=== PATIENT | female | born 1975 | race Caucasian/White ===

== ENCOUNTER 2017-01-06 14:07 | Observation (INO) | payer OTHER ==
[~2017-01-06] VITALS: Ht 175.3 cm; Wt 80.0 kg
[~2017-01-06 14:07] MED LIST: MELA5TAB8 PO; Z.0.BCPILL PO
[2017-01-06 14:12] VITALS: BP 139/88; PULSE 90; RESP 18; TEMP 98; O2SAT 99
--- NOTE | 2017-01-06 14:13 | PD ---
Physical Exam Date Seen by Provider: Jan 06, 2017 Time Seen by Provider: 14:11 Narrative 41 YOWF C/O L ARM TINGLING AND SQUEEZING. POS L FACIAL/EYE PAIN -12/01 VS REVIEWED AWAITING BED PLACEMENT MDM Supervised Visit with FÁTIMA: Jose David Powell Jan 06, 2017 14:13
[2017-01-06] MEDS ORDERED: TRI-TAB (17:28)
--- NOTE | 2017-01-06 17:46 | PD ---
HPI . left arm numbness, tingling, since earlier today Chief Complaint: Neuro Symptoms/ Deficits Time Seen by Provider: 17:45 Travel History International Travel<30 days: Yes Contact w/Intl Traveler<30days: [place] Traveled to: [place], [place], [place], [place] Traveled to known affect area: No History of Present Illness HPI 41-year-old female with no significant past medical history here with complaints of left arm numbness and tingling that started earlier today. Patient tells me that last week she went on a cruise to the [facility] and she thinks that her arm may have been swollen. She says that it was extremely hot and she had some numbness then, but she didn't think much of it. She blames it on the heat. She is now complaining of being at work and having a sensation of feeling flushed and left arm numbness. She was concerned about a stroke and decided to come to the ED for evaluation. She had to call a colleague to relieve her. She reports that she had some eye pain, however that is completely resolved. She does still have some numbness and pain in her left upper extremity. She denies any chest pain, nausea, vomiting, diaphoresis, shortness of breath, abdominal pain, weakness or fatigue. She's not had any recent illness, fever or chills. She did not have any slurred speech. [facility] Past Medical History Depression: Yes Diminished Hearing: No Influenza Vaccination: No ?: Not LMP: 12/2016 Past Surgical History Eye Surgery: Yes (lasik) Social History Alcohol Use: Yes (2-3 x weekly) Tobacco Use: No Substance Use: No Allergies-Medications (Allergen,Severity, Reaction): Coded Allergies: No Known Allergies (Verified , 01/06/17) Reported Meds & Prescriptions Reported Meds & Active Scripts Active Reported Tri-Sprintec (Norgestimate-Ethinyl Estradiol) 0.18/0.215/0.25 Mg-35 Mcg Tab Review of Systems General / Constitutional: No: Fever Eyes: No: Visual changes HENT: No: Headaches Cardiovascular: No: Chest Pain or Discomfort Respiratory: No: Shortness of Breath Gastrointestinal: No: Abdominal Pain Genitourinary: No: Urgency, Frequency, Dysuria Musculoskeletal: No: Pain Skin: No Rash Neurologic: Positive: Paresthesia, No: Weakness Psychiatric: No: Depression Endocrine: No: Polydipsia Hematologic/Lymphatic: No: Easy Bruising Physical Exam Narrative GENERAL: AAO x 3, no acute distress, Well-nourished, well-developed patient. SKIN: Warm and dry. No visible rashes or bruising. HEAD: Normocephalic and atraumatic. EYES: No scleral icterus. No injection or drainage. EOM intact, PERRLA ENT: No nasal drainage noted. Mucous membranes pink. Airway patent. TM normal bilaterally except mild cerumen buildup, no oropharynx NECK: Supple, trachea midline. No JVD. no lymphadenopathy CARDIOVASCULAR: Regular rate and rhythm without murmurs, gallops, or rubs. RESPIRATORY: Breath sounds equal bilaterally. No accessory muscle use. No rhonchi or rales. no wheezing. GASTROINTESTINAL: Abdomen soft, non-tender, nondistended. no rebound or guarding EXTREMITIES: No cyanosis or edema. full ROM B/L upper and lower extremities BACK: Nontender without obvious deformity. No CVA tenderness. NEURO: CN II-12 intact, patient transport orderly strength normal b/l, UE and LE 5/5, no focal deficits, no pronator drift, negative Romberg PSYCH: AAO x 3, slightly bizarre behavior, but responds appropriately Data Data Last Documented VS Vital Signs Date Time Temp Pulse Resp B/P Pulse Ox O2 Delivery O2 Flow Rate FiO2 01/06/17 19:06 81 12 137/91 100 Room Air 01/06/17 14:12 98.0 Orders Complete Blood Count With Diff (01/06/17 17:51) Basic Metabolic Panel (Bmp) (01/06/17 17:51) Ct Brain W/O Iv Contrast(Rout) (01/06/17 17:51) Ecg Monitoring (01/06/17 17:51) Iv Access Insert/Monitor (01/06/17 17:51) Oximetry (01/06/17 17:51) Sodium Chloride 0.9% Flush (Ns Flush) (01/06/17 18:00) Ed Urine Pregnancytest Poc (01/06/17 17:51) Electrocardiogram (01/06/17 ) Electrocardiogram (01/06/17 18:58) Ckmb (Isoenzyme) Profile (01/06/17 18:58) Magnesium (Mg) (01/06/17 18:58) Prothrombin Time / Inr (Pt) (01/06/17 18:58) Act Partial Throm Time (Ptt) (01/06/17 18:58) Troponin I (01/06/17 18:58) Chest, Single Ap (01/06/17 18:58) Bilateral Bp Monitoring (01/06/17 18:58) Oxygen Administration (01/06/17 18:58) Mri Brain W/O Contrast (01/06/17 18:58) Mra Brain W/O Contrast (Cow) (01/06/17 18:58) Mra Carotids W Contrast (01/06/17 18:58) D-Dimer (01/06/17 18:58) Lorazepam (Ativan) (01/06/17 20:15) Admit Order (Ed Use Only) (01/06/17 20:31) Labs Laboratory Tests Test 01/06/17 18:15 White Blood Count 7.8 TH/MM3 Red Blood Count 4.45 MIL/MM3 Hemoglobin 13.7 GM/DL Hematocrit 40.3 % Mean Corpuscular Volume 90.7 FL Mean Corpuscular Hemoglobin 30.9 PG Mean Corpuscular Hemoglobin 34.0 % Concent Red Cell Distribution Width 14.5 % Platelet Count 235 TH/MM3 Mean Platelet Volume 7.6 FL Neutrophils (%) (Auto) 51.4 % Lymphocytes (%) (Auto) 36.7 % Monocytes (%) (Auto) 8.4 % Eosinophils (%) (Auto) 2.9 % Basophils (%) (Auto) 0.6 % Neutrophils # (Auto) 4.0 TH/MM3 Lymphocytes # (Auto) 2.9 TH/MM3 Monocytes # (Auto) 0.7 TH/MM3 Eosinophils # (Auto) 0.2 TH/MM3 Basophils # (Auto) 0.0 TH/MM3 CBC Comment DIFF FINAL Differential Comment Sodium Level 137 MEQ/L Potassium Level 3.6 MEQ/L Chloride Level 103 MEQ/L Carbon Dioxide Level 28.7 MEQ/L Anion Gap 5 MEQ/L Blood Urea Nitrogen 17 MG/DL Creatinine 0.82 MG/DL Estimat Glomerular Filtration 76 ML/MIN Rate Random Glucose 89 MG/DL Calcium Level 8.7 MG/DL MDM Medical Decision Making Medical Screen Exam Complete: Yes Emergency Medical Condition: Yes Medical Record Reviewed: Yes Differential Diagnosis exhaustion, TIA, less likely CVA, Narrative Course 41 yr old female here with left arm numbness and tingling that started while at work. Exam was done and unremarkable. CT brain and labs ordered. Laboratory Tests Test 01/06/17 18:15 White Blood Count 7.8 TH/MM3 Red Blood Count 4.45 MIL/MM3 Hemoglobin 13.7 GM/DL Hematocrit 40.3 % Mean Corpuscular Volume 90.7 FL Mean Corpuscular Hemoglobin 30.9 PG Mean Corpuscular Hemoglobin 34.0 % Concent Red Cell Distribution Width 14.5 % Platelet Count 235 TH/MM3 Mean Platelet Volume 7.6 FL Neutrophils (%) (Auto) 51.4 % Lymphocytes (%) (Auto) 36.7 % Monocytes (%) (Auto) 8.4 % Eosinophils (%) (Auto) 2.9 % Basophils (%) (Auto) 0.6 % Neutrophils # (Auto) 4.0 TH/MM3 Lymphocytes # (Auto) 2.9 TH/MM3 Monocytes # (Auto) 0.7 TH/MM3 Eosinophils # (Auto) 0.2 TH/MM3 Basophils # (Auto) 0.0 TH/MM3 CBC Comment DIFF FINAL Differential Comment Sodium Level 137 MEQ/L Potassium Level 3.6 MEQ/L Chloride Level 103 MEQ/L Carbon Dioxide Level 28.7 MEQ/L Anion Gap 5 MEQ/L Blood Urea Nitrogen 17 MG/DL Creatinine 0.82 MG/DL Estimat Glomerular Filtration 76 ML/MIN Rate Random Glucose 89 MG/DL Calcium Level 8.7 MG/DL CT brain unremarkable. Dr. Herron has also examined the patient. We discussed the case. He recommends MRI brain, MRA [place] of amos and carotids along with cardiac enzymes and d dimer. Patient apparently had some additional information about walking and have some arm swelling along with syncopal episode. Dr. Herron discussed case with the admitting physician, who will resume care of this patient. Diagnosis Primary Impression: Left arm weakness Additional Impression: Near syncope Admitting Information Admitting Physician Requests: Admit Patient Instructions: General Instructions Additional Instructions: Follow-up with primary care provider. Return to the emergency department for any worsening of your condition. Med/Other Pt SpecificInfo: No Change to Meds Disposition: 01 DISCHARGE HOME Condition: Stable Zhane Kay Jan 06, 2017 17:45
[2017-01-06] MEDS ORDERED: SODIUM CHLORIDE 0.9% FLUSH 10 ML FLUSH IVF PRN (18:00)
[2017-01-06 18:29] LABS: BASOPHIL % 0.6 % (0.0-2.0); EOSINOPHIL # 0.2 TH/MM3 (0-0.4); EOSINOPHIL % 2.9 % (0.0-4.0); HEMATOCRIT 40.3 % (35.0-46.0); HEMO FLAGS DIFF FINAL; LYMPH % 36.7 % (9.0-44.0); LYMPHOCYTE # 2.9 TH/MM3 (1.0-4.8); MEAN CELL VOLUME 90.7 FL (80.0-100.0); MEAN CORPUSCULAR HEMOGLOBIN 30.9 PG (27.0-34.0); MONO % 8.4 % (0.0-8.0); NEUT % 51.4 % (16.0-70.0); PLATELET COUNT 235 TH/MM3 (150-450); RED BLOOD COUNT 4.45 MIL/MM3 (4.00-5.30); RED CELL DISTRIBUTION WIDTH 14.5 % (11.6-17.2); WHITE BLOOD COUNT 7.8 TH/MM3 (4.0-11.0)
[2017-01-06 18:43] LABS: BICARBONATE 28.7 MEQ/L (21.0-32.0); POTASSIUM 3.6 MEQ/L (3.5-5.1)
--- NOTE | 2017-01-06 18:45 | RADRPT ---
EXAM DATE/TIME: 01/06/2017 18:20 [facility] COMPARISON: No previous studies available for comparison. INDICATIONS : Near syncope,left eye pain,left arm tingling. RADIATION DOSE: 50.25 CTDIvol (mGy) MEDICAL HISTORY : None SURGICAL HISTORY : None. ENCOUNTER: Initial ACUITY: 1 day PAIN SCALE: 6/10 LOCATION: Left cranial TECHNIQUE: Multiple contiguous axial images were obtained of the head. Using automated exposure control and adj ustment of the mA and/or kV according to patient size, radiation dose was kept as low as reasonably a chievable to obtain optimal diagnostic quality images. DICOM format image data is available electro nically for review and comparison. FINDINGS: CEREBRUM: The ventricles are normal for age. No evidence of midline shift, mass lesion, hemorrhage or acute in farction. No extra-axial fluid collections are seen. POSTERIOR FOSSA: The cerebellum and brainstem are intact. The 4th ventricle is midline. The cerebellopontine angle i s unremarkable. EXTRACRANIAL: The visualized portion of the orbits is intact. SKULL: The calvaria is intact. No evidence of skull fracture. CONCLUSION: Negative noncontrast head CT. Daniel Rose MD on January 06, 2017 at 18:43 Board Certified Radiologist. This report was verified electronically.
[2017-01-06 19:06] VITALS: BP 137/91; PULSE 81; RESP 12; O2SAT 100
--- NOTE | 2017-01-06 19:34 | RADRPT ---
EXAM DATE/TIME: 01/06/2017 19:00 [facility] COMPARISON: No previous studies available for comparison. INDICATIONS : Chest pain. MEDICAL HISTORY : None. SURGICAL HISTORY : None. ENCOUNTER: Initial ACUITY: 1 day PAIN SCORE: 4/10 LOCATION: Left chest FINDINGS: A single view of the chest demonstrates the lungs to be symmetrically aerated without evidence of mas s, infiltrate or effusion. The cardiomediastinal contours are unremarkable. Osseous structures are intact. CONCLUSION: No evidence of acute cardiopulmonary disease. Daniel Rose MD on January 06, 2017 at 19:32 Board Certified Radiologist. This report was verified electronically.
[2017-01-06] MEDS ORDERED: LORazepam 0.5 MG TAB PO ONE (20:15)
[2017-01-06 20:59] LABS: APTT (PATIENT) 25.9 SEC (24.3-30.1); PROTHROMBIN TIME - PATIENT 11.1 SEC (9.8-11.6)
[2017-01-06 21:00] LABS: MAGNESIUM 2.1 MG/DL (1.5-2.5)
[2017-01-06 21:02] LABS: CREATINE KINASE 140 U/L (26-192)
[2017-01-06 21:15] LABS: CKMB 1.4 NG/ML (0.5-3.6)
[2017-01-06] MEDS ORDERED: SODIUM CHLORIDE 0.9% FLUSH 10 ML FLUSH IV FLUSH PRN (21:15)
--- NOTE | 2017-01-06 21:34 | RADRPT ---
EXAM DATE/TIME: 01/06/2017 20:43 [facility] COMPARISON: No previous studies available for comparison. INDICATIONS : Cephalgia. MEDICAL HISTORY : None. SURGICAL HISTORY : Lasik, eye. ENCOUNTER: Subsequent ACUITY: 1 day PAIN SCORE: 3/10 LOCATION: cranial Please note a normal MRA of the brain does not entirely exclude the possibility of a small aneurysm, nor the possibility of distal intracranial vessel disease. TECHNIQUE: 3D time of flight MRA was performed. Source images, multiplanar STS MIP, and 3D volume MIP reconstru ctions were reviewed. FINDINGS: There is excellent visualization of the major intracranial arteries out to the second-order branch ve ssels. There is no evidence for aneurysm, vessel truncation or stenosis, and no evidence for vascula r malformation. CONCLUSION: Normal intracranial arteries. Daniel Rose MD on January 06, 2017 at 21:32 Board Certified Radiologist. This report was verified electronically.
--- NOTE | 2017-01-06 21:39 | HHI.HP ---
[facility] Service Family Medicine Primary Care Physician Alex Rivera MD Admission Diagnosis L Face/LUE Parasthesias Diagnoses: International Travel<30 Days: Yes Contact w/Intl Traveler<30days: [place] Traveled to: [place], [facility], [facility], [facility] Known Affected Area: No History of Present Illness Patient presented to the emergency department with a transient episode of left arm paresthesia. Patient reports that she was on a cruise since December 22, in which she went to [place], [facility], [facility], [place]. All the while, it was hot in the . She first saw watch tan in her arm like she was swelling. During a walking tour of [facility], she experienced cold chills. Then, last week, her left eye started to bother her. She describes feeling stabbing pain. She woke up last Thursday and didn't feel well with nausea and vomiting. Around noon, she felt better. She then was walking around [place], felt hot and cold, thought she might be menopausal, but then had her period. She went to work today, and her left eye was bothering her, then her left ear, then left arm with pins and needles like asleep. She also felt presyncopal/ lightheaded, sweaty at work. She felt a squeezing sensation around her left elbow upon arrival to ED. She denies any red or tender arms or legs. She reports that she did have a long flight, but got up as frequently as possible to stretch her legs. Her face feels like there is something touching around her left ear. Now, she denies any numbness, weakness, facial droop, slurred speech. (Doron Joshi MD R2) Review of Systems Constitutional: COMPLAINS OF: Fatigue, Chills, DENIES: Fever Endocrine: DENIES: Polydipsia, Polyuria, Polyphagia Eyes: COMPLAINS OF: Blurred vision (left more blurry after lasik), DENIES: Diplopia, Vision loss, Double Vision Ears, nose, mouth, throat: COMPLAINS OF: Running Nose (always ), DENIES: Tinnitus, Hearing loss, Throat pain Respiratory: DENIES: Shortness of breath Cardiovascular: COMPLAINS OF: Dyspnea on Exertion, DENIES: Chest pain, Lower Extremity Edema Gastrointestinal: DENIES: Abdominal pain, Black stools, Bloody stools, Constipation, Diarrhea, Nausea, Vomiting Genitourinary: DENIES: Urinary frequency, Urinary incontinence, Urgency, Hematuria, Dysuria Musculoskeletal: COMPLAINS OF: Joint pain (left knee), Neck pain (as she was sitting), DENIES: Joint Swelling, Back pain Integumentary: DENIES: Rash, Nail changes Neurologic: COMPLAINS OF: Paresthesias, DENIES: Abnormal gait, Headache, Localized weakness (Doron Joshi MD R2) Past Family Social History Past Medical History depression, dx in 2007 cycle every 26-28 days, heavy on first few days, lasts 4-[address] 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 Past Surgical History LASIK Reported Medications Reported Meds & Active Scripts Active Reported Tri-Sprintec (Norgestimate-Ethinyl Estradiol) 0.18/0.215/0.25 Mg-35 Mcg Tab ( Doron Joshi MD R2) Allergies: Coded Allergies: No Known Allergies (Verified , 01/06/17) Family History dad committed suicide mom is healthy borther has bad allergies Social History work at [employer] etoh: 1-2 drinks 3-4 week tobacco: none illicits: denies (Doron Joshi MD R2) Physical Exam Vital Signs Vital Signs Date Time Temp Pulse Resp B/P Pulse Ox O2 Delivery O2 Flow Rate FiO2 01/06/17 19:06 81 12 137/91 100 Room Air 01/06/17 14:12 98.0 90 18 139/88 99 Room Air Physical Exam GENERAL: This is a well-nourished, well-developed patient, in no apparent distress. SKIN: No rashes, ecchymoses or lesions. Cool and dry. HEAD: Atraumatic. Normocephalic. EYES: Pupils equal round and reactive. Extraocular motions intact. No scleral icterus. No injection or drainage. ENT: Nose without bleeding, purulent drainage or septal hematoma. Moist mucous membranes. Throat without erythema, tonsillar hypertrophy or exudate. Uvula midline. Airway patent. NECK: Trachea midline. No JVD or lymphadenopathy. Supple, nontender, no meningeal signs. CARDIOVASCULAR: Regular rate and rhythm without murmurs, gallops, or rubs. RESPIRATORY: Clear to auscultation. Breath sounds equal bilaterally. No wheezes , rales, or rhonchi. GASTROINTESTINAL: Abdomen soft, non-tender, nondistended. No hepato-splenomegaly , or palpable masses. No guarding. MUSCULOSKELETAL: Extremities without clubbing, cyanosis, or edema. No joint tenderness, effusion, or edema noted. No calf tenderness. Negative Homans sign bilaterally. NEUROLOGICAL: Awake and alert. Cranial nerves II through XII intact. Except for some mildly decreased sensation distal to her left elbow, Motor and sensory within normal limits. Five out of 5 muscle strength in all muscle groups. Normal speech. Laboratory Laboratory Tests Test 01/06/17 01/06/17 18:15 20:25 White Blood Count 7.8 Red Blood Count 4.45 Hemoglobin 13.7 Hematocrit 40.3 Mean Corpuscular Volume 90.7 Mean Corpuscular Hemoglobin 30.9 Mean Corpuscular Hemoglobin 34.0 Concent Red Cell Distribution Width 14.5 Platelet Count 235 Mean Platelet Volume 7.6 Neutrophils (%) (Auto) 51.4 Lymphocytes (%) (Auto) 36.7 Monocytes (%) (Auto) 8.4 Eosinophils (%) (Auto) 2.9 Basophils (%) (Auto) 0.6 Neutrophils # (Auto) 4.0 Lymphocytes # (Auto) 2.9 Monocytes # (Auto) 0.7 Eosinophils # (Auto) 0.2 Basophils # (Auto) 0.0 CBC Comment DIFF FINAL Differential Comment Sodium Level 137 Potassium Level 3.6 Chloride Level 103 Carbon Dioxide Level 28.7 Anion Gap 5 Blood Urea Nitrogen 17 Creatinine 0.82 Estimat Glomerular Filtration 76 Rate Random Glucose 89 Calcium Level 8.7 Prothrombin Time 11.1 Prothromb Time International 1.0 Ratio Activated Partial 25.9 Thromboplast Time D-Dimer Quantitative (PE/DVT) 0.45 Magnesium Level 2.1 Total Creatine Kinase 140 Creatine Kinase MB 1.4 Troponin I LESS THAN 0.02 (Doron Joshi MD R2) Result Diagram: 01/06/17181401/06/171814 Imaging Last Impressions Neck Magnetic Resonance Angiography 01/06/171857 Signed Impressions: Service Date/Time: Friday, January 06, 2017 20:43 - CONCLUSION: Normal carotid MRA. Daniel Rose MD Head Magnetic Resonance Angiography 01/06/171857 Signed Impressions: Service Date/Time: Friday, January 06, 2017 20:43 - CONCLUSION: Normal intracranial arteries. Daniel Rose MD Chest X-Ray 01/06/171857 Signed Impressions: Service Date/Time: Friday, January 06, 2017 19:00 - CONCLUSION: No evidence of acute cardiopulmonary disease. Daniel Rose MD Brain MRI 01/06/171857 Signed Impressions: Service Date/Time: Friday, January 06, 2017 20:43 - CONCLUSION: Normal noncontrast MRI of the brain. Daniel Rose MD Head CT 01/06/171750 Signed Impressions: Service Date/Time: Friday, January 06, 2017 18:20 - CONCLUSION: Negative noncontrast head CT. Daniel Rose MD (Doron Joshi MD R2) Assessment and Plan Assessment and Plan Patient is a 41-year-old woman with a history of depression who presents with transient left arm paresthesia and a strange sensation around her left ear. Differential diagnosis includes TIA, CVA, atypical presentation of CAD/ACS. Code Status Full code (Doron Joshi MD R2) Attending Attestation Patient seen and examined Case reviewed and discussed Please refer to resident H&P for further details regarding HPI, ROS, PMH, SurgHx , Fh and SocHx In summary, patient is a 41yoF who presented from work on day of admission with acute L arm weakness and L sided headache She is seen in her hospital bed, reporting some improvement in her symptoms but states she still is not back to normal Patient also notes while at work she had some confusion with her normal daily work responsibilities which she has done for the last 18 years. No speech difficulties, word finding trouble GENERAL: well-appearing, female, NAD SKIN: Warm and dry. NO rashes HEAD: Normocephalic. AT EYES: No scleral icterus. No injection or drainage. ENT: OP clear. MMM NECK: Supple, trachea midline. No JVD or lymphadenopathy. CARDIOVASCULAR: Regular rate and rhythm without audible murmurs, gallops, or rubs. RESPIRATORY: Breath sounds equal and clear bilaterally. No accessory muscle use. GASTROINTESTINAL: Abdomen soft, non-tender, nondistended. NO rebound MUSCULOSKELETAL: No cyanosis, or edema. No calf tenderness BACK: Nontender without obvious deformity. No CVA tenderness. NEURO: Normal speech. 5/5 x 4. CN grossly intact. Subjectively diminished sensation over dorsal hand. A/P: 41yoF admitted with: Headache with LUE parasthesias Depression Transient confusion Hypotension Stroke protocol- NRI/MRA Neurology consulted Resume home meds Lovenox for DVT proph Patient seen and examined. Case reviewed and discussed Agree with plan of care as discussed with me and documented in the resident note. (June Valencia MD) Problem List: (1) Arm paresthesia, left Status: Acute Plan: Placed in observation for ACS rule out and CVA workup ACS rule out with every 6 hours troponin, EKG, CK CVA workup as below: Echocardiogram, brain MRI, head MRA, neck MRA, head CT, carotid ultrasound Consult neurology, rehabilitation medicine, stroke navigator, OT Gentle fluid hydration Aspirin by mouth daily Atorvastatin by mouth daily Plavix by mouth daily Permissive hypertension with Vasotec when necessary for blood pressure over 220 /120 DVT prophylaxis with Lovenox Load glucose control with low-dose sliding scale insulin Bedrest 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
--- NOTE | 2017-01-06 21:45 | RADRPT ---
EXAM DATE/TIME: 01/06/2017 20:43 [facility] COMPARISON: MRA BRAIN W/O CONTRAST, January 06, 2017, 20:43. CT BRAIN W/O CONTRAST, January 06, 2017, 18:20. INDICATIONS : Cephalgia. MEDICAL HISTORY : None. SURGICAL HISTORY : Lasik, eye. ENCOUNTER: Subsequent ACUITY: 1 day PAIN SCORE: 3/10 LOCATION: cranial TECHNIQUE: Multiplanar, multisequence MRI of the brain was performed without contrast. FINDINGS: CEREBRUM: The ventricles are normal for age. No evidence of midline shift, mass lesion, hemorrhage or acute in farction. No extraaxial fluid collections are seen. The pituitary gland and suprasellar cistern are normal in configuration. WHITE MATTER: No significant signal abnormalities are seen in the white matter. POSTERIOR FOSSA: The cerebellum and brainstem are intact. The 4th ventricle is midline. The cerebellopontine angle is unremarkable. The cerebellar tonsils are normal in position. DIFFUSION IMAGING: No focal areas of restricted diffusion are seen. No evidence of acute infarction. EXTRACRANIAL: The visualized portions of the orbits and paranasal sinuses are unremarkable. CONCLUSION: Normal noncontrast MRI of the brain. Daniel Rose MD on January 06, 2017 at 21:43 Board Certified Radiologist. This report was verified electronically.
[2017-01-06] MEDS: SODIUM CHLOR 0.9% 1000 ML INJ 1,000 ML IV SCH (21:49)
--- NOTE | 2017-01-06 21:52 | RADRPT ---
EXAM DATE/TIME: 01/06/2017 20:43 [facility] COMPARISON: MRA BRAIN W/O CONTRAST, January 06, 2017, 20:43. MRI BRAIN W/O CONTRAST, January 06, 2017, 20:43. INDICATIONS : Stroke. CONTRAST: 20 cc Omniscan (gadodiamide) IV MEDICAL HISTORY : None. SURGICAL HISTORY : Lasik, eye. ENCOUNTER: Subsequent ACUITY: 1 day PAIN SCORE: 3/10 LOCATION: cranial Percent stenosis is calculated using the diameter of the stenotic region over the diameter of the nor mal distal internal carotid artery. TECHNIQUE: Bolus infused MRA of the extracranial circulation was performed using a neurovascular coil. Post pro cessing was performed including rotating subvolume maximum intensity projections of each carotid carlos ry, rotating full volume maximum intensity projections of both carotid arteries, sagittal and coronal sliding thin slab reformations of each carotid artery, and left oblique sliding thin slab reformatio n through the aortic arch to include the origin of the arch branch vessels. FINDINGS: AORTIC ARCH: There is a three vessel origin of the great vessels from the aorta. No evidence of ostial narrowing. RIGHT CAROTID: The common carotid artery is intact. The carotid bulb has a normal configuration without ulceration or narrowing. The internal carotid artery lumen is smooth without stenosis. The external carotid ar sri is intact. LEFT CAROTID: The common carotid artery is intact. The carotid bulb has a normal configuration without ulceration or narrowing. The internal carotid artery lumen is smooth without stenosis. The external carotid ar sri is intact.VERTEBRALS: Left vertebral artery is dominant. No stenotic lesions are seen. CONCLUSION: Normal carotid MRA. Daniel Rose MD on January 06, 2017 at 21:50 Board Certified Radiologist. This report was verified electronically.
[2017-01-06] MEDS ORDERED: ENALAPRILAT 1.25 MG/ML VIAL IV PRN (22:00)
[2017-01-06] MEDS ORDERED: DEXTROSE 50% IN WATER 50 ML VIAL(D50) IV PUSH PRN (22:00)
[2017-01-06] MEDS ORDERED: SODIUM CHLORIDE 0.9% FLUSH 5 ML FLUSH IV FLUSH PRN (22:00)
[2017-01-06] MEDS ORDERED: GLUCAGON 1 MG/ML VIAL OTHER PRN (22:00)
[2017-01-06] MEDS ORDERED: GADODIAMIDE PF 287 MG/ML 20 ML VIAL (for RAD MRI) IV ONE (22:05)
[2017-01-06 23:01] VITALS: BP 119/70; PULSE 83; RESP 20; TEMP 97.8; O2SAT 99
[2017-01-07] VITALS (12 sets, daily range): BP systolic 70–126; BP diastolic 37–83; PULSE 42–83; RESP 16–18; TEMP 98.1–98.3; O2SAT 97–100
--- NOTE | 2017-01-07 00:28 | EKG ---
Date Performed: 01/06/2017 Time Performed: 18:33:28 PTAGE: 41 years EKG: Sinus rhythm NORMAL ECG NO PREVIOUS TRACING DOCTOR: Dino Herron Interpretating Date/Time 01/07/2017 00:27:37
[2017-01-07 03:52] LABS: ALT (GPT) 22 U/L (10-53); ANION GAP 6 MEQ/L (5-15); AST (GOT) 15 U/L (15-37); BLOOD UREA NITROGEN 20 MG/DL (7-18); CHLORIDE 107 MEQ/L (98-107); GLOMERULAR FILTRATION RATE 74 ML/MIN (>89); POTASSIUM 3.5 MEQ/L (3.5-5.1); SODIUM (NA) 142 MEQ/L (136-145)
[2017-01-07 03:56] LABS: ALKALINE PHOSPHATASE 57 U/L (45-117); CREATINE KINASE 134 U/L (26-192); TOTAL BILIRUBIN ADULT 0.2 MG/DL (0.2-1.0)
[2017-01-07] MEDS: SODIUM CHLOR 0.9% 1000 ML INJ 1,000 ML IV SCH (05:48)
[2017-01-07] MEDS: INSULIN ASPART SUPPLEMENTAL SCALE SQ SCH ×4 (05:54→21:00)
--- NOTE | 2017-01-07 08:45 | MB ---
cc: TRISTAN WADSWORTH M.D. DATE OF CONSULTATION 01/07/2017 REASON FOR CONSULTATION Left arm paresthesias. HISTORY OF PRESENT ILLNESS Ms. James is a 45-year-old female who states about a week ago she was on a cruise and suddenly noted some swelling of the left arm. It did not look swollen, just felt swollen. She had to take a watch off, it resolved after about a day. Yesterday while at work, she suddenly developed numbness and tingling down the left arm mainly on the dorsal aspect and also a numbness in the left ear and a pain in the left eye lasting about an hour, with resolution and no other neurologic symptoms. PAST MEDICAL HISTORY 1. History of depression. 2. Lasik eye surgery MEDICATIONS She takes control pills. ALLERGIES None known. SOCIAL HISTORY Denies tobacco use. She drinks alcohol occasionally. Denies any drug abuse. NEUROLOGIC EXAMINATION VITAL SIGNS: Blood pressure 104/71, pulse 70, respirations 18, temperature 98 degrees. Higher cortical functions are normal. Cranial nerves II-XII are normal in detail. Motor examination reveals 5/5 strength of all groups in both upper and lower extremities. There is no drift. Fine motor skills within normal limits. Reflexes are symmetric. Sensory exam, slight diminished sensation in the left C5 dermatome. Reflexes symmetric. MRI of the brain normal. MRA brain normal. MRA of the neck is normal with no evidence of any carotid stenosis. CT brain is within normal limits. Chest x-ray Is normal. LABORATORY DATA White count 7800, hemoglobin of 13.7, hematocrit 40.3%, platelet count 235,000, PT 11.1, INR 1, APTT 25.9. Sodium is 142, potassium 3.5, chloride 107, CO2 29, the BUN is 20, creatinine 0.84, GFR is 74, glucose is 87, calcium 8.4. AST 15, ALT 22, CPK 140. EKG normal sinus rhythm. IMPRESSION Symptoms are suggestive of cervical radiculopathy with occipital neuralgia, doubt TIA. RECOMMENDATIONS I would like to get an MRI of the cervical spine for further evaluation to rule out any signs of some foraminal stenosis. MD TEDDY Haro/ANGELICA /8:29 AM /8:34 AM
[2017-01-07] MEDS: SODIUM CHLORIDE 0.9% FLUSH 5 ML FLUSH IV FLUSH SCH ×2 (09:00→21:00)
[2017-01-07] MEDS ORDERED: SODIUM CHLORIDE 0.9% FLUSH 10 ML FLUSH IV FLUSH SCH (09:00)
--- NOTE | 2017-01-07 09:56 | RADRPT ---
EXAM DATE/TIME: 01/07/2017 09:03 [place] COMPARISON: MRI BRAIN W/O CONTRAST, January 06, 2017, 20:43. INDICATIONS : Cervical stenosis. Left upper extremity numbness. MEDICAL HISTORY : None. SURGICAL HISTORY : Lasik. ENCOUNTER: Subsequent ACUITY: 2 day PAIN SCORE: 0/10 LOCATION: neck TECHNIQUE: Multiplanar, multisequence MRI examination of the cervical spine was performed. FINDINGS: Sagittal T1 and T2-weighted images demonstrate adequate alignment of the cervical vertebral bodies. T here is a desiccated, degenerated disc at C5/6. [address] way further assessed by axial imaging. No abnorm al marrow signal is seen within the vertebral bodies. No abnormal signal is present within the cervic al cord. The cerebellar tonsils are in their appropriate location. The atlantodens joint is intact. C2-C3: The thecal sac has a normal configuration. There is no evidence of disc herniation or spinal canal s tenosis. The neural foramina are patent bilaterally. C3-C4: The thecal sac has a normal configuration. There is no evidence of disc herniation or spinal canal s tenosis. The neural foramina are patent bilaterally. C4-C5: The thecal sac has a normal configuration. There is no evidence of disc herniation or spinal canal s tenosis. The neural foramina are patent bilaterally. C5-C6: There is partial desiccation of the disc. There is a small broad-based disc bulge which abuts the chaya tral aspect of the thecal sac. The residual thecal space and foramina are adequate. There are mild ar thritic changes in the facet joints bilaterally. C6-C7: The thecal sac has a normal configuration. There is no evidence of disc herniation or spinal canal s tenosis. The neural foramina are patent bilaterally. C7-T1: The thecal sac has a normal configuration. There is no evidence of disc herniation or spinal canal s tenosis. The neural foramina are patent bilaterally. CONCLUSION: 1. Mild degenerative disc disease at C5/C6. No significant neural foraminal stenosis or spinal stenos is identified. Gerry Romero MD on January 07, 2017 at 9:51 Board Certified Radiologist. This report was verified electronically.
--- NOTE | 2017-01-07 10:02 | HHI.FPPN ---
Subjective Remarks Patient reports improvement in left sided (face and arm) numbness and tingling. Denies any persistent headaches. Tolerating PO diet without difficulty. No confusion. Became hypotensive last night to 70/37. She reports that this was after a blood draw and that she was "worked up." She reports a history of inner ear (BPV) in early 1999 and had an episode last night that was similar. Never diagnosed with migraines previously but gets persistent headaches that are relieved by rest and aspirin. (Gus Hurley MD, R3) Objective Vitals Vital Signs Date Time Temp Pulse Resp B/P Pulse Ox O2 Delivery O2 Flow Rate FiO2 01/07/17 07:40 98.2 70 18 104/71 97 01/07/17 05:50 62 16 92/55 01/07/17 04:07 67 96/60 01/07/17 04:00 66 01/07/17 03:17 98.2 42 16 70/37 100 01/07/17 00:04 72 01/06/17 23:01 97.8 83 20 119/70 99 01/06/17 22:01 21 01/06/17 19:06 81 12 137/91 100 Room Air 01/06/17 14:12 98.0 90 18 139/88 99 Room Air (Gus Hurley MD, R3) Result Diagram: 01/06/17 1815 01/07/17 0307 A/P Assessment and Plan Patient is a 41-year-old woman with a history of depression who presents with transient left arm paresthesia and a strange sensation around her left ear. Differential diagnosis includes TIA, CVA, atypical presentation of CAD/ACS. ( Gus Hurley MD, R3) Attending Attestation Patient seen and examined Case reviewed and discussed Agree with plan of care as discussed with me and documented in the resident note. Patient with SO at bedside. Hypotensive episode overnight suspected to be vasovagal from phlebotomy, witnessed by nursing staff Patient reports a fear of needles and blood draws and reports this has happened before. (June Valencia MD) Problem List: (1) Arm paresthesia, left Status: Acute Plan: Placed in observation for ACS rule out and CVA workup ACS rule out with every 6 hours troponin, EKG, CK - troponin negative 3, EKG unchanged. CVA workup as below: Echocardiogram pending -Brain MRI negative for any acute infarcts or bleeding, head MRA negative for any high-grade stenosis, neck MRA also negative for any stenosis, head CT no acute intracranial pathology Consulted neurology, given the above findings, patient's symptoms consistent with cervical radiculopathy versus occipital neuralgia. TIA less likely. Will follow-up with MRI of C-spine. Aspirin by mouth daily Atorvastatin by mouth daily Plavix by mouth daily Permissive hypertension with Vasotec when necessary for blood pressure over 220 /120 DVT prophylaxis with Lovenox Glucose control with low-dose sliding scale insulin Bedrest Head of bed flat front desk monitor/telemetry Neuro checks Monitor vital signs (2) Labile hypertension Status: Acute Plan: Blood pressure on admission was 139/88. Overnight patient had an episode of hypotension to 70/37. Etiology unknown. We'll continue to monitor. Patient is not on any antihypertensives. Continuous telemetry. Will follow-up echocardiogram. (3) FEN ppx Status: Acute Plan: Fluids: Hold IV fluids Electrolytes: Monitor and replete as necessary Nutrition: Regular diet DVT Prophylaxis: Lovenox (Gus Hurley MD, R3) Gus Hurley MD, R3 Jan 07, 2017 10:02 June Valencia MD Jan 07, 2017 22:41
[2017-01-07] MEDS: CLOPIDOGREL 75 MG TAB PO SCH (10:06)
[2017-01-07] MEDS: ASPIRIN 325 MG TAB PO SCH (10:06)
[2017-01-07] MEDS: ENOXAPARIN SODIUM 40 MG/0.4 ML SYRINGE SQ SCH (10:07)
[2017-01-07 12:18] LABS: AUTOMATED NEUTROPHIL # 3.5 TH/MM3 (1.8-7.7); BASOPHIL % 0.5 % (0.0-2.0); EOSINOPHIL # 0.1 TH/MM3 (0-0.4); EOSINOPHIL % 2.2 % (0.0-4.0); HEMATOCRIT 39.9 % (35.0-46.0); HEMO FLAGS DIFF FINAL; LYMPH % 33.4 % (9.0-44.0); LYMPHOCYTE # 2.1 TH/MM3 (1.0-4.8); MEAN CELL VOLUME 92.8 FL (80.0-100.0); MEAN CORPUSCULAR HEMOGLOBIN 30.6 PG (27.0-34.0); MONO % 9.2 % (0.0-8.0); NEUT % 54.7 % (16.0-70.0); PLATELET COUNT 238 TH/MM3 (150-450); RED CELL DISTRIBUTION WIDTH 14.9 % (11.6-17.2); WHITE BLOOD COUNT 6.3 TH/MM3 (4.0-11.0)
[2017-01-07 12:39] LABS: CREATINE KINASE 105 U/L (26-192)
[2017-01-07 14:48] LABS: HDL CHOLESTEROL 104.1 MG/DL (40.0-60.0)
[2017-01-07 16:07] LABS: HEMOGLOBIN A1a 1.4 %; HEMOGLOBIN A1b 1.6 %; HEMOGLOBIN Ao 86.1 %; HEMOGLOBIN LA1C 1.7 %; HEMOGLOBIN P3 3.4 %
--- NOTE | 2017-01-07 18:19 | ECHRPT ---
Indication: cva/tia CONCLUSIONS Normal left ventricular size and wall thickness. The left ventricular systolic function is normal wi th an estimated ejection fraction in the range of 55-60%. Left ventricular diastolic function parameters a re normal. BP: / HR: Rhythm: MEASUREMENTS (Male / Female) Normal Values Technical Quality: 2D ECHO LV Diastolic Diameter PLAX 4.5 cm 4.2 - 5.9 / 3.9 - 5.3 cm LV Systolic Diameter PLAX 3.4 cm IVS Diastolic Thickness 1.1 cm 0.6 - 1.0 / 0.6 - 0.9 cm LVPW Diastolic Thickness 0.7 cm 0.6 - 1.0 / 0.6 - 0.9 cm LV Relative Wall Thickness 0.4 RV Internal Dim ED PLAX 1.8 cm LA Systolic Diameter LX 3.0 cm 3.0 - 4.0 / 2.7 - 3.8 cm DOPPLER Mitral E Point Velocity 84.4 cm/s Mitral A Point Velocity 74.5 cm/s Mitral E to A Ratio 1.1 TR Peak Velocity 170.0 cm/s TR Peak Gradient 11.6 mmHg FINDINGS LEFT VENTRICLE Normal left ventricular size and wall thickness. The left ventricular systolic function is normal wi th an estimated ejection fraction in the range of 55-60%. Left ventricular diastolic function parameters a re normal. RIGHT VENTRICLE Normal right ventricular size and systolic function. LEFT ATRIUM The left atrial size is normal. RIGHT ATRIUM The right atrial size is normal. ATRIAL SEPTUM Normal atrial septal thickness without atrial level shunting by limited color doppler interrogation. AORTA The aortic root and proximal ascending aorta are normal in size on limited imaging. MITRAL VALVE Structurally normal mitral valve. No mitral valve stenosis or regurgitation. AORTIC VALVE Trileaflet aortic valve. No aortic valve stenosis or regurgitation. TRICUSPID VALVE Structurally normal tricuspid valve. No tricuspid valve stenosis or regurgitation. PULMONARY VALVE The pulmonary valve is not well visualized. VESSELS The inferior vena cava is normal in size. PERICARDIUM No pericardial effusion. Anthony Herrmann MD (Electronically Signed) Final Date:07 January 2017 18:18
[2017-01-07] MEDS ORDERED: ATORVASTATIN 10 MG TAB PO SCH (21:00)
[2017-01-08] VITALS (8 sets, daily range): BP systolic 101–119; BP diastolic 67–77; PULSE 63–80; RESP 18–19; TEMP 98.1–98.6; O2SAT 98–99
[2017-01-08] MEDS: SODIUM CHLOR 0.9% 1000 ML INJ 1,000 ML IV SCH (00:16)
[2017-01-08] MEDS: INSULIN ASPART SUPPLEMENTAL SCALE SQ SCH ×2 (06:17→11:00)
--- NOTE | 2017-01-08 08:39 | EKG ---
Date Performed: 01/06/2017 Time Performed: 22:11:54 PTAGE: 41 years EKG: Sinus rhythm NONSPECIFIC T-WAVE ABNORMALITY ABNORMAL ECG PREVIOUS TRACING : 01/06/2017 18.33 Compared to the previous tracing, non-specific ST/T wave ch anges are now noted DOCTOR: Dino Herron Interpretating Date/Time 01/08/2017 08:37:21
[2017-01-08] MEDS: SODIUM CHLORIDE 0.9% FLUSH 5 ML FLUSH IV FLUSH SCH (09:00)
--- NOTE | 2017-01-08 09:09 | EKG ---
Date Performed: 01/07/2017 Time Performed: 20:00:00 PTAGE: 41 years EKG: Sinus rhythm POSSIBLE RIGHT VENTRICULAR CONDUCTION DELAY BORDERLINE ECG INTERPRETATION BASED ON A DEFAULT AGE OF 38 YEARS NO PREVIOUS TRACING DOCTOR: Toñito Torres Interpretating Date/Time 01/08/2017 09:01:14
[2017-01-08] MEDS: ASPIRIN 325 MG TAB PO SCH (09:39)
[2017-01-08] MEDS: CLOPIDOGREL 75 MG TAB PO SCH (09:39)
[2017-01-08] MEDS: ENOXAPARIN SODIUM 40 MG/0.4 ML SYRINGE SQ SCH (09:40)
[2017-01-08] MEDS ORDERED: ASPI81CH CHEW (11:26)
--- NOTE | 2017-01-08 11:27 | HHI.DCPOC ---
Discharge Care Plan Diagnosis: (1) Arm paresthesia, left (2) Left arm weakness Goals to Promote Your Health * To prevent worsening of your condition and complications * To maintain your health at the optimal level Directions to Meet Your Goals Take your medications as prescribed Follow your dietary instruction Follow activity as directed Keep your appointments as scheduled Take your immunizations and boosters as scheduled If your symptoms worsen call your PCP, if no PCP go to Urgent Care Center or Emergency Room Smoking is Dangerous to Your Health. Avoid second hand smoke Call the 24-hour hour crisis hotline for domestic abuse at Gus Hurley MD, R3 Jan 08, 2017 11:27
--- NOTE | 2017-01-08 11:27 | HHI.FPPN ---
Subjective Remarks denies any persistent left arm weakness or numbness. Denies shoulder or chest pain. Is reporting pressure behind her left eye. Denies SOB, cough or sputum production. No additional episodes of hypotension related to lab draws. (Gus Hurley MD, R3) Objective Vitals Vital Signs Date Time Temp Pulse Resp B/P Pulse Ox O2 Delivery O2 Flow Rate FiO2 01/08/17 07:24 98.3 64 18 101/69 98 01/08/17 05:58 98.6 73 18 110/67 99 01/08/17 03:56 64 01/08/17 01:35 98.6 76 19 104/67 99 01/08/17 00:04 63 01/07/17 20:56 98.3 83 18 117/73 98 01/07/17 20:20 97 01/07/17 20:05 81 01/07/17 17:31 98.1 77 18 126/83 98 01/07/17 12:18 98.3 75 18 111/70 99 (Gus Hurley MD, R3) Result Diagram: 01/07/17 1104 01/07/17 0307 Objective Remarks GEN: Sitting upright NAD HEENT: PERRL, EOM intact, CN intact, no sensation deficit CV: RRR no murmurs LUNGS: CTAB MSK: 5/5 strength throughout, negative pronator drift, full sensation to light touch over all dermatomes. (Gus Hurley MD, R3) A/P Assessment and Plan Patient is a 41-year-old woman with a history of depression who presents with transient left arm paresthesia and a strange sensation around her left ear. Discharge Planning Today 01/08/17 if cleared by neurology. (Gus Hurley MD, R3) Attending Attestation Patient seen and examined. Case reviewed and discussed with Dr. Hurley Agree with plan of care as discussed with me and documented in the resident note. (June Valencia MD) Problem List: (1) Arm paresthesia, left Status: Acute Plan: ACS rule out with every 6 hours troponin, EKG, CK: *troponin negative 3, EKG showed new T-wave flattening on 01/06 at 10 pm. New from EKG done on 01/06 at 6 pm. Will recheck EKG this morning as well as troponin. Echocardiogram showed normal EF and no valve disease. -Brain MRI negative for any acute infarcts or bleeding, head MRA negative for any high-grade stenosis, neck MRA also negative for any stenosis, head CT no acute intracranial pathology Consulted neurology, given the above findings, patient's symptoms consistent with cervical radiculopathy versus occipital neuralgia. TIA less likely. -MRI of C-spine showed degenerative changes at C5-C6 without spinal stenosis. Aspirin by mouth daily Atorvastatin by mouth daily Plavix by mouth daily Permissive hypertension with Vasotec when necessary for blood pressure over 220 /120 DVT prophylaxis with Lovenox (2) Labile hypertension Status: Acute Plan: Blood pressure on admission was 139/88. Overnight patient had an episode of hypotension to 70/37. Afterblood draw, likely neurogenic / vasovagal response. Patient is not on any antihypertensives. Continuous telemetry. (3) FEN ppx Status: Acute Plan: Fluids: Hold IV fluids Electrolytes: Monitor and replete as necessary Nutrition: Regular diet DVT Prophylaxis: Lovenox (Gus Hurley MD, R3) Gus Hurley MD, R3 Jan 08, 2017 11:27 June Valencia MD Jan 12, 2017 09:54
[2017-01-08 13:07] LABS: AUTOMATED NEUTROPHIL # 2.3 TH/MM3 (1.8-7.7); BASOPHIL % 0.6 % (0.0-2.0); EOSINOPHIL # 0.2 TH/MM3 (0-0.4); EOSINOPHIL % 2.9 % (0.0-4.0); HEMATOCRIT 36.6 % (35.0-46.0); HEMO FLAGS DIFF FINAL; LYMPH % 43.1 % (9.0-44.0); LYMPHOCYTE # 2.3 TH/MM3 (1.0-4.8); MEAN CELL VOLUME 93.1 FL (80.0-100.0); MEAN CORPUSCULAR HEMOGLOBIN 30.6 PG (27.0-34.0); MEAN CORPUSCULAR HGB CONC 32.9 % (32.0-36.0); MONO % 10.4 % (0.0-8.0); PLATELET COUNT 220 TH/MM3 (150-450); RED BLOOD COUNT 3.93 MIL/MM3 (4.00-5.30); RED CELL DISTRIBUTION WIDTH 14.8 % (11.6-17.2); WHITE BLOOD COUNT 5.4 TH/MM3 (4.0-11.0)
[2017-01-08 13:30] LABS: ANION GAP 3 MEQ/L (5-15); BICARBONATE 30.6 MEQ/L (21.0-32.0); BLOOD UREA NITROGEN 10 MG/DL (7-18); CHLORIDE 107 MEQ/L (98-107); GLOMERULAR FILTRATION RATE 88 ML/MIN (>89); SODIUM (NA) 141 MEQ/L (136-145)
--- NOTE | 2017-01-08 14:07 | HHI.DS ---
Discharge Summary Admission Date Jan 06, 2017 at 20:34 Admitting Diagnosis L Face/LUE Parasthesias (1) Arm paresthesia, left Plan: ACS rule out with every 6 hours troponin, EKG, CK: *troponin negative 3, EKG showed new T-wave flattening on 01/06 at 10 pm. New from EKG done on 01/06 at 6 pm. Will recheck EKG this morning as well as troponin. Echocardiogram showed normal EF and no valve disease. -Brain MRI negative for any acute infarcts or bleeding, head MRA negative for any high-grade stenosis, neck MRA also negative for any stenosis, head CT no acute intracranial pathology Consulted neurology, given the above findings, patient's symptoms consistent with cervical radiculopathy versus occipital neuralgia. TIA less likely. -MRI of C-spine showed degenerative changes at C5-C6 without spinal stenosis. Aspirin by mouth daily Atorvastatin by mouth daily Plavix by mouth daily Permissive hypertension with Vasotec when necessary for blood pressure over 220 /120 DVT prophylaxis with Lovenox (2) Labile hypertension Plan: Blood pressure on admission was 139/88. Overnight patient had an episode of hypotension to 70/37. Afterblood draw, likely neurogenic / vasovagal response. Patient is not on any antihypertensives. Continuous telemetry. (3) FEN ppx Plan: Fluids: Hold IV fluids Electrolytes: Monitor and replete as necessary Nutrition: Regular diet DVT Prophylaxis: Lovenox Brief History Patient presented to the emergency department with a transient episode of left arm paresthesia. Patient reports that she was on a cruise since December 22, in which she went to [place], [place], [facility], [place]. All the while, it was hot in the 90s. She first saw watch tan in her arm like she was swelling. During a walking tour of [place], she experienced cold chills. Then, last week, her left eye started to bother her. She describes feeling stabbing pain. She woke up last Thursday and didn't feel well with nausea and vomiting. Around noon, she felt better. She then was walking around [place], felt hot and cold, thought she might be menopausal, but then had her period. She went to work today, and her left eye was bothering her, then her left ear, then left arm with pins and needles like asleep. She also felt presyncopal/ lightheaded, sweaty at work. She felt a squeezing sensation around her left elbow upon arrival to ED. She denies any red or tender arms or legs. She reports that she did have a long flight, but got up as frequently as possible to stretch her legs. Her face feels like there is something touching around her left ear. Now, she denies any numbness, weakness, facial droop, slurred speech. CBC/BMP: 01/08/17 1217 01/08/17 1217 Significant Findings Laboratory Tests Test 01/06/17 01/06/17 01/07/17 01/07/17 18:15 20:25 03:07 10:20 Monocytes (%) (Auto) 8.4 % (0.0-8.0) Estimat Glomerular Filtration 76 ML/MIN (>89) 74 ML/MIN (>89) Rate Troponin I LESS THAN 0.02 LESS THAN 0.02 NG/ML NG/ML (0.02-0.05) (0.02-0.05) Blood Urea Nitrogen 20 MG/DL (7-18) Calcium Level 8.4 MG/DL (8.5-10.1) Albumin 2.9 GM/DL (3.4-5.0) HDL Cholesterol 104.1 MG/DL (40.0-60.0) Test 01/07/17 01/08/17 11:04 12:17 Monocytes (%) (Auto) 9.2 % (0.0-8.0) 10.4 % (0.0-8.0) Troponin I LESS THAN 0.02 LESS THAN 0.02 NG/ML NG/ML (0.02-0.05) (0.02-0.05) Red Blood Count 3.93 MIL/MM3 (4.00-5.30) Anion Gap 3 MEQ/L (5-15) Estimat Glomerular Filtration 88 ML/MIN (>89) Rate Random Glucose 70 MG/DL (74-106) Calcium Level 8.4 MG/DL (8.5-10.1) PE at Discharge GEN: Sitting upright NAD HEENT: PERRL, EOM intact, CN intact, no sensation deficit CV: RRR no murmurs LUNGS: CTAB MSK: 5/5 strength throughout, negative pronator drift, full sensation to light touch over all dermatomes. Hospital Course Patient is a previously healthy 41-year-old female, presenting with left-sided facial and left hand numbness, slight confusion, and pain in her neck. She was admitted for a stroke workup. This included a brain MRI which was within normal limits, head and neck MRA which was also within normal limits. CT of her head was also unremarkable. Chest x-ray was also unremarkable. Given the radicular type pain, a cervical spine MRI was performed which showed mild degenerative disc disease at C5/C6. No significant normal for a minimal stenosis or spinal stenosis identified. She did have an episode of hypotension to 70/50, after getting a lab draw. This was thought to be vasovagal/ neurogenic. Troponins were less than 0.02. Her EKG she did show some nonspecific T-wave inversions in anterior and inferior leads. This resolved during her hospitalization. The vague left sided weakness also resolved during her hospitalization, and was thought to be related to atypical migraines versus occipital neuralgia. She was cleared by neurology for discharge, and should follow-up with Dr. Ori King in 3 weeks. She was discharged home in stable condition. Discharge Disposition: Discharge Home Discharge Instructions DIET: Follow Instructions for: As Tolerated, No Restrictions Activities you can perform: Regular-No Restrictions Gus Hurley MD, R3 Jan 08, 2017 14:07
--- NOTE | 2017-01-08 14:44 | PD.CONS ---
Assessment and Plan Assessment Consult received per stroke order set. EMR reviewed. MRI negative for acute stroke. Family practice notes indicate cervical radiculopathy versus occipital neuralgia. Consult deferred due to no acute stroke. Please reconsult as appropriate. Thank you. Erica Fernandez MD Jan 08, 2017 14:44
--- NOTE | 2017-01-08 15:41 | HHI.PR ---
Review/Management Diagnosis left cervical radiculopathy (C5) and left occipital neuralgia--sx resolved Plan ok from neurology standpoint to discharge home f/u with me in office in 3 weeks Diagnosis/Plan: Subjective Subjective Comments No acute events reported left Arm and ear numbness and tingling resolved. Left eye pain improved Active Medications Current Medications Medications (Trade) Dose Ordered Sig/Yu Route Start Time Stop Time Status Last Admin (NS Flush) 2 ml BID IV FLUSH 01/07/17 09:00 01/07/17 21:00 (NS Flush) 2 ml UNSCH PRN IV FLUSH 01/06/17 22:00 (Vasotec Inj) 1.25 mg Q4H PRN IV 01/06/17 22:00 (Aspirin) 325 mg DAILY PO 01/07/17 09:00 01/08/17 09:39 (Lipitor) 10 mg HS PO 01/07/17 21:00 01/08/17 00:15 (Plavix) 75 mg DAILY PO 01/07/17 09:00 01/08/17 09:39 (NovoLOG SUPPLEMENTAL SCALE) 1 ACHS SQ 01/07/17 07:00 (D50w (Vial) Inj) 50 ml UNSCH PRN IV PUSH 01/06/17 22:00 (Glucagon Inj) 1 mg UNSCH PRN OTHER 01/06/17 22:00 (Lovenox Inj) 40 mg Q24H SQ 01/07/17 09:00 01/08/17 09:40 Allergies Allergies Coded Allergies No Known Allergies (Verified01/06/17) Exam I&O / VS Vital Signs Date Time Temp Pulse Resp B/P Pulse Ox O2 Delivery O2 Flow Rate FiO2 01/08/17 15:28 98.5 74 18 109/75 99 01/08/17 11:18 98.1 80 18 119/77 99 01/08/17 08:00 70 01/08/17 07:24 98.3 64 18 101/69 98 01/08/17 05:58 98.6 73 18 110/67 99 01/08/17 03:56 64 01/08/17 01:35 98.6 76 19 104/67 99 01/08/17 00:04 63 01/07/17 20:56 98.3 83 18 117/73 98 01/07/17 20:20 97 01/07/17 20:05 81 01/07/17 17:31 98.1 77 18 126/83 98 Exam Comments alert, speech normal CN intact Motor 5/5 BUE and BLE SENS--normal Objective Radiology Results mri cervical spine--mild spondylosis C45 Micro and Labs Laboratory Tests Test 01/08/17 12:17 White Blood Count 5.4 Red Blood Count 3.93 Hemoglobin 12.0 Hematocrit 36.6 Mean Corpuscular Volume 93.1 Mean Corpuscular Hemoglobin 30.6 Mean Corpuscular Hemoglobin 32.9 Concent Red Cell Distribution Width 14.8 Platelet Count 220 Mean Platelet Volume 7.3 Neutrophils (%) (Auto) 43.0 Lymphocytes (%) (Auto) 43.1 Monocytes (%) (Auto) 10.4 Eosinophils (%) (Auto) 2.9 Basophils (%) (Auto) 0.6 Neutrophils # (Auto) 2.3 Lymphocytes # (Auto) 2.3 Monocytes # (Auto) 0.6 Eosinophils # (Auto) 0.2 Basophils # (Auto) 0.0 CBC Comment DIFF FINAL Differential Comment Sodium Level 141 Potassium Level 4.0 Chloride Level 107 Carbon Dioxide Level 30.6 Anion Gap 3 Blood Urea Nitrogen 10 Creatinine 0.72 Estimat Glomerular Filtration 88 Rate Random Glucose 70 Calcium Level 8.4 Troponin I LESS THAN 0.02 Ori King PhD Jan 08, 2017 15:41
--- NOTE | 2017-01-09 14:37 | EKG ---
Date Performed: 01/08/2017 Time Performed: 11:53:06 PTAGE: 41 years EKG: Sinus rhythm POSSIBLE RIGHT VENTRICULAR CONDUCTION DELAY BORDERLINE ECG Compared to prior tracing no significant change PREVIOUS TRACING : 01/07/2017 20.00 DOCTOR: Bony Palacio Interpretating Date/Time 01/09/2017 14:34:45
== END 2017-01-08 19:03 | disposition home or self-care (01) ==
LOC: NEPD 14:07 → NEDA 20:34 → NEPGCP 22:57
PROVIDERS: ADMIT Family Medicine; ATTEND Family Medicine
DX: M50.122 Cervical disc disorder at C5-C6 level with radiculopathy (principal); R53.1 Weakness; R55 Syncope and collapse; R68.83 Chills (without fever); F32.9 Major depressive disorder, single episode, unspecified; R51 Headache; I95.9 Hypotension, unspecified
CPT/HCPCS: 70450; 70544; 70548; 70551; 71010; 72141; 80048; 80053; 80061; 82550; 82552; 82948; 83036; 83735; 84484; 84703; 85025; 85379; 85610; 85730; 93005; 93306; 94150; 96360; 96361; 96372; 97166; 99285; A9579; G0378; G8987; G8988; G8989; J1650; J7030